=== PATIENT | female | born 2000 | race Hispanic/Latino ===

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

== ENCOUNTER 2024-07-04 20:03 | Emergency (ER) | payer BC, MEDICAID ==
[~2024-07-04] VITALS: Ht 154.9 cm; Wt 71.7 kg
[~2024-07-04 20:03] MED LIST changes: -CODE10LI PO; +CODE10LI2 PO; -GADOTERATE MEGLUMINE 10 MMOL/20 ML VIAL IV ONE; +ONDA-243 PO; -ONDA4TAB10 PO
[2024-07-04] MEDS: acetaMINOPHEN 500 MG TABLET PO ONE (22:48)
--- NOTE | 2024-07-04 23:00 | ERN ---
ED Note History of Present Illness Stated Complaint: THIRD TOE ON RIGHT CUT THROUGH NAIL AND SKIN Chief Complaint: Toe Pain/Injury Time Seen by MD: 22:21 Time Seen by Midlevel: 22:22 Dictation: 23-year-old female presents to the emergency department due to reported having sustained an injury to the 3rd digit of the right foot. Patient states that she was walking when she accidentally bumped her toe against a solid object. Currently, she reports having her level of discomfort as a 6/10. Patient states the pain is primarily with palpation or weight-bearing on the affected foot. She reports having sustained a small abrasion to the distal portion of that toe. Upon initial evaluation, the patient presents with a normal neurovascular examination. Allergies: Coded Allergies: Iodine and Iodide Containing Produc (Unverified Allergy, Severe, SHORTNESS OF BREATH, 07/22/20) Home Meds Active Scripts Promethazine HCl (Promethazine HCl) 25 Mg Supp.rect, 25 MG RC QID PRN for vomiting, #10 EA 0 Refills Prov:KENNETH YEPEZ MD 01/06/21 Benzonatate (Tessalon Perle) 100 Mg Capsule, 100 MG PO Q6HPRN PRN for COUGH, #20 CAP Prov:JADYN MORSE MD 11/05/20 Amoxicillin/Potassium Clav (Augmentin 875-125 Tablet) 1 Each Tablet, 1 EACH PO TID, #30 TAB Prov:JADYN MORSE MD 11/05/20 Fluticasone Propionate (Flonase Nasal [place]) 50 Mcg/[place], 50 MCG NASAL BID, #1 SPRAY Prov:JADYN MORSE MD 11/05/20 Cyclobenzaprine HCl (Flexeril) 10 Mg Tab, 10 MG PO BID, #30 TAB Prov:СВЕТЛАНА GALLO 10/07/20 Ibuprofen (Ibu) 400 Mg Tablet, 600 MG PO TIDAC, #45 TAB Prov:СВЕТЛАНА GALLO 10/07/20 Codeine Phosphate/Guaifenesin (Guaifen-Codeine 200-20 mg/10Ml) 10 Ml Liquid, 10 ML PO QID, #120 ML Prov:СВЕТЛАНА GALLO 08/03/20 Albuterol Sulfate (Proair Hfa) 8.5 Gm Hfa.aer.ad, 8.5 GM IH QID, #1 UNIT Prov:СВЕТЛАНА GALLO 08/03/20 Pantoprazole Sodium (Protonix) 40 Mg Tablet.dr, 40 MG PO DAILY, #14 TAB 0 Refills Prov:NILDA ESCOBAR MD 07/22/20 Metoclopramide HCl (Reglan 10 mg Tab) 10 Mg Tablet, 10 MG PO TIDP, #20 TAB 0 Refills Prov:NILDA ESCOBAR MD 07/22/20 Dicyclomine HCl (Bentyl) 20 Mg Tab, 20 MG PO Q6HPRN, #20 TAB 0 Refills Prov:NILDA ESCOBAR MD 07/22/20 Ondansetron (Ondansetron Odt) 4 Mg Tab.rapdis, 4 MG PO Q6HPRN, #20 TAB 0 Refills Prov:NILDA ESCOBAR MD 07/22/20 Past Medical History Past Medical History: No Pertinent History Additional Past Medical Hx: OCD, history of epistaxis Surgical History: None PSYCH History: no pertinent psych hx Family History: Negative Social History: Negative, Lives with family History: Not Applicable RN Note Reviewed/Agreed w/PFSH: Yes Review of System Dictation MS/Extremity: Pain to the 3rd digit of the right foot Skin: Toe abrasion Initial Vital Sign VS Vital Signs Date Time Temp Pulse Resp B/P (MAP) Pulse Ox O2 Delivery O2 Flow Rate FiO2 07/04/24 20:03 98.2 68 18 125/79 100 Room Air 07/04/24 20:11 0 21 Physical Exam Dictation General: awake, alert, NAD Head/Face: Normocephalic, atraumatic Eyes: PERRL, EOMI ENT: Oral mucosa moist Neck: Trachea midline, supple Cardiovascular: RRR, no edema Respiratory: Symmetrical, non-labored Abdomen: Soft, non-tender, non-distended, no guarding. Skin: Warm, small nonbleeding abrasion noted to the distal portion of the 3rd toe of the right foot MS/Extremity: Painful range of motion and tenderness to the 3rd toe of the right foot. Normal neurovascular examination. Neuro: COAx4, GCS 15, steady gait, Psych: Normal behavior, mood, and affect normal Results (Laboratory/Radiology) Laboratory/Radiology Laboratory Tests Test 07/04/24 20:38 07/04/24 21:20 Urine HCG, Qualitative NEGATIVE (NEGATIVE) Serum Test, Qualitative NEGATIVE (NEGATIVE) Labs Reviewed?: Yes X-RAY Comment: Three-view x-ray of the right foot with no cortical anomalies as interpreted by me. ED Course ED Course Orders Procedure Category Date Status Time ,Urine Test LAB 07/04/24 Complete 20:25 Foot Comp 3+Vws Rt RAD 07/04/24 Taken 20:37 Testing, LAB 07/04/24 Complete Serum Hcg 21:13 Acetaminophen 500mg PHA 07/04/24 In Process Tab (Tylenol 500mg T 23:00 Current Medications Medications (Trade) Dose Ordered Sig/Quin Route PRN Reason Start Time Stop Time Status Last Admin Dose Admin Acetaminophen (TYLenol 500MG TAB) 1,000 mg ONCE ONCE PO 07/04/24 23:00 07/04/24 23:01 07/04/24 22:48 Vital Signs Date Time Temp Pulse Resp B/P (MAP) Pulse Ox O2 Delivery O2 Flow Rate FiO2 07/04/24 20:11 98.2 68 18 125/79 100 Room Air* 0 21 07/04/24 20:03 98.2 68 18 125/79 100 Room Air Medical Decision Making MDM MDM: Differential diagnosis: Toe fracture, tuft toe, abrasion. Rationale: Tests considered and ordered secondary to shared decision making include: Previous outside records reviewed: Old ER visits. Risk of complication and/or morbidity or mortality of patient management: None Medications-Per medication reconciliation Need for hospitalization: Patient does not meet criteria for hospitalization. Need for emergency major/minor surgery: No There are no social concerns with this patient. Prescription drug management Prescriptions will include symptomatic care Patient's prior external medical records from other ER visits were reviewed by me as indicated. Prior testing and results from previous visits were reviewed. Prior tests were taken into account with medical decision making and resource utilization, independent historian/historians were used to obtain complete medical history. I independently interpreted the test that were performed, results were reviewed by me and considered findings on radiology if ordered. Medical management and examination interpretation discussions were had by me with other qualified healthcare professionals as indicated for the patient's care. DX & DISP Disposition: Discharge Departure Impression: Primary Impression: Turf toe of right foot Additional Impression: Abrasion of toe of right foot Condition: Stable Referrals: SELF,REFERRAL (PCP) SARA CARIAS July 04, 2024 23:00
[2024-07-04 23:03] VITALS: BP 124/70; PULSE 65; RESP 18; TEMP 98.2; O2SAT 100
--- NOTE | 2024-07-05 08:28 | HMCIMG ---
RIGHT FOOT RADIOGRAPHS - 3 VIEWS INDICATION: Third toe pain COMPARISON: None FINDINGS: AP, lateral, and oblique views. No acute fracture or subluxation identified. Midfoot alignment is well maintained. No radiopaque foreign body noted. IMPRESSION: No evidence for third toe fracture or subluxation.
== END 2024-07-04 23:04 | disposition home or self-care (01) ==
LOC: EDH 20:03
DX: S93.521A Sprain of metatarsophalangeal joint of right great toe, initial encounter (principal); F42.9 Obsessive-compulsive disorder, unspecified; Z79.899 Other long term (current) drug therapy; Z88.8 Allergy status to other drugs, medicaments and biological substances; Z91.041 Radiographic dye allergy status; W22.8XXA Striking against or struck by other objects, initial encounter; Y93.01 Activity, walking, marching and hiking; Y92.89 Other specified places as the place of occurrence of the external cause; Y99.8 Other external cause status
CPT/HCPCS: 36415; 73630; 81025; 84703; 99283

== ENCOUNTER 2024-10-03 20:25 | Emergency (ER) | payer BC ==
[~2024-10-03] VITALS: Ht 154.9 cm; Wt 72.6 kg
--- NOTE | 2024-10-03 20:27 | NUR ---
UA CUP PROVIDED
--- NOTE | 2024-10-03 20:57 | NUR ---
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 PT STATES SHE LANDED ON HER LEFT HIP AND NOW RATES PAIN 8/10 AND 10/10 ON MOTION. PT STATES SHE TOOK 1 GM OF TYLENOL PRIOR TO ARRIVAL WITHOUT ANY RELIEF.
--- NOTE | 2024-10-03 21:00 | ERN ---
ED Note History of Present Illness Stated Complaint: FALL, LEFT HIP PAIN Chief Complaint: Hip Pain/Injury Time Seen by MD: 20:58 Dictation: This is a 23-year-old female who presented to the emergency room complaining of left hip pain after she sustained a fall. Apparently she was fishing around 1900 time and she slipped and fell on a rock on the left side of her body she did not hit the head or any other parts. She began experiencing severe hip pain and hence she came in for evaluation no loss of consciousness. No history of any use of blood thinners. No blurred vision headache diplopia motor weakness or seizure activity. Temperature 98.2, blood pressure 108/73, heart rate of 66 pulse oximetry 99% on room air Her chronic medical problems include asthma, depression, OCD and previous history of epistaxis Allergies: Coded Allergies: Iodine and Iodide Containing Produc (Unverified Allergy, Severe, SHORTNESS OF BREATH, 07/22/20) Home Meds Active Scripts Ibuprofen (Ibuprofen) 800 Mg Tablet, 800 MG PO Q8H PRN for PAIN, #15 TAB 0 Refills Prov:JEANETTE CABEZAS MD 10/03/24 Promethazine HCl (Promethazine HCl) 25 Mg Supp.rect, 25 MG RC QID PRN for vomiting, #10 EA 0 Refills Prov:KENNETH YEPEZ MD 01/06/21 Benzonatate (Tessalon Perle) 100 Mg Capsule, 100 MG PO Q6HPRN PRN for COUGH, #20 CAP Prov:JADYN MORSE MD 11/05/20 Amoxicillin/Potassium Clav (Augmentin 875-125 Tablet) 1 Each Tablet, 1 EACH PO TID, #30 TAB Prov:JADYN MORSE MD 11/05/20 Fluticasone Propionate (Flonase Nasal [place]) 50 Mcg/[place], 50 MCG NASAL BID, #1 SPRAY Prov:JADYN MORSE MD 11/05/20 Cyclobenzaprine HCl (Flexeril) 10 Mg Tab, 10 MG PO BID, #30 TAB Prov:СВЕТЛАНА GALLO 10/07/20 Ibuprofen (Ibu) 400 Mg Tablet, 600 MG PO TIDAC, #45 TAB Prov:СВЕТЛАНА GALLO 10/07/20 Codeine Phosphate/Guaifenesin (Guaifen-Codeine 200-20 mg/10Ml) 10 Ml Liquid, 10 ML PO QID, #120 ML Prov:СВЕТЛАНА GALLO 08/03/20 Albuterol Sulfate (Proair Hfa) 8.5 Gm Hfa.aer.ad, 8.5 GM IH QID, #1 UNIT Prov:СВЕТЛАНА GALLO 08/03/20 Pantoprazole Sodium (Protonix) 40 Mg Tablet.dr, 40 MG PO DAILY, #14 TAB 0 Refills Prov:NILDA ESCOBAR MD 07/22/20 Metoclopramide HCl (Reglan 10 mg Tab) 10 Mg Tablet, 10 MG PO TIDP, #20 TAB 0 Refills Prov:NILDA ESCOBAR MD 07/22/20 Dicyclomine HCl (Bentyl) 20 Mg Tab, 20 MG PO Q6HPRN, #20 TAB 0 Refills Prov:NILDA ESCOBAR MD 07/22/20 Ondansetron (Ondansetron Odt) 4 Mg Tab.rapdis, 4 MG PO Q6HPRN, #20 TAB 0 Refills Prov:NILDA ESCOBAR MD 07/22/20 Past Medical History Past Medical History: Asthma, Depression, Other Additional Past Medical Hx: OCD, history of epistaxis Surgical History: None Family History: Negative Social History: Negative, Lives with family History: Not Applicable LMP: Sep 11, 2024 RN Note Reviewed/Agreed w/PFSH: Yes Review of System Dictation Constitutional: Negative for fever,chills, and weight loss Eyes: Negative for injury, pain,redness, and discharge ENT: Negative for injury,pain or swelling Cardiovascular: Negative for chest pain, palpitations, and edema Respiratory: Negative for shortness of breath, cough, and wheezing, Abdomen/GI: Negative for abdominal pain, nausea, vomiting, diarrhea, and constipation Back: Negative for injury and pain : Negative for injury, bleeding and discharge MS/Extremity: Negative for injury and deformity positive for left hip pain Skin: Negative for rash, and discoloration Neuro: Negative for headache, weakness, numbness, tingling, and seizure Psych: Negative for suicide ideation, homicidal ideation, and hallucinations Initial Vital Sign VS Vital Signs Date Time Temp Pulse Resp B/P (MAP) Pulse Ox O2 Delivery O2 Flow Rate FiO2 10/03/24 20:27 98.2 66 16 108/73 99 Room Air 10/03/24 20:47 0 21 Physical Exam Dictation General: awake, alert, NAD Head/Face: Normocephalic, atraumatic Eyes: PERRL, EOMI, vision at baseline ENT: oral cavity clear, TMs clear, no signs of infection Neck: Trachea midline, supple, no nuchal rigidity Cardiovascular: RRR, normal S1/S2, No MRGs, no JVD Respiratory: CTAB, no respiratory distress, No rales or wheezes Abdomen: Soft, non-tender, non-distended, normal bowel sounds, no guarding or rebound. Skin: Warm, dry, normal turgor, no rash MS/Extremity: Pulses equal, no cyanosis, neurovascular intact, FROM no leg shortening, mild tenderness Neuro: COAx4, GCS 15, strength 5/5, CN 2-12 intact, normal cerebellar exam, Psych: Normal behavior, mood, and affect normal Extremities-trace edema without any palpable cords, Homans sign is negative Results (Laboratory/Radiology) Laboratory/Radiology Laboratory Tests Test 10/03/24 21:10 Urine HCG, Qualitative NEGATIVE (NEGATIVE) Labs Reviewed?: Yes X-RAY Comment: REASON: Fall on left side , severeleft hip pain ORDERING PHYSICIAN: JEANETTE CABEZAS MD PROCEDURE: HIP U 2V L - HIP UNILAT 2-3VW LEFT EXAM: CR right Hip, 3 View. CLINICAL HISTORY: Fall on left side , severeleft hip pain COMPARISON: None provided. FINDINGS: BONES: No acute fracture or aggressive appearing osseous lesion. JOINTS: No dislocation. The joint spaces are normal. SOFT TISSUES: The soft tissues are unremarkable. IMPRESSION: No acute osseous abnormality. /[place] DICTATED BY: ISABEL LARA Jr., MD DATE: 10/03/24 616 ELECTRONICALLY SIGNED BY: ISABEL LARA Jr., MD DATE: 10/03/24 ED Course ED Course Orders Procedure Category Date Status Time Hip Unilat 2-3vw Left RAD 10/03/24 Resulted 20:58 ,Urine Test LAB 10/03/24 Complete 20:59 Ketorolac PHA 10/03/24 Complete Tromethamine 30mg/Ml 22:00 Ketorolac PHA 10/03/24 Complete Tromethamine 30mg/Ml 21:52 Current Medications Medications (Trade) Dose Ordered Sig/Quin Route PRN Reason Start Time Stop Time Status Last Admin Dose Admin Ketorolac Tromethamine (toRADol) 30 mg ONCE ONCE IM 10/03/24 22:00 10/03/24 22:01 DC 10/03/24 21:58 Ketorolac Tromethamine (toRADol) 30 mg STK-MED ONCE .ROUTE 10/03/24 21:52 10/03/24 21:53 DC Vital Signs Date Time Temp Pulse Resp B/P (MAP) Pulse Ox O2 Delivery O2 Flow Rate FiO2 10/03/24 20:47 98.1 65 16 105/73 100 Room Air* 0 21 10/03/24 20:27 98.2 66 16 108/73 99 Room Air Medical Decision Making MDM Differential diagnosis: Left hip contusion, ligamental tear, subcapital fracture, any type of fracture, hemarthrosis Rationale: Tests considered and ordered secondary to shared decision making include: Previous outside records reviewed: Old ER visits. Risk of complication and/or morbidity or mortality of patient management: None Medications-Per medication reconciliation Need for hospitalization: Patient does not meet criteria for hospitalization. Need for emergency major/minor surgery: No There are no social concerns with this patient. Prescription drug management Prescriptions will include symptomatic care Patient's prior external medical records from other ER visits were reviewed by me as indicated. Prior testing and results from previous visits were reviewed. Prior tests were taken into account with medical decision making and resource utilization, independent historian/historians were used to obtain complete medical history. I independently interpreted the test that were performed, results were reviewed by me and considered findings on radiology if ordered. Medical management and examination interpretation discussions were had by me with other qualified healthcare professionals as indicated for the patient's care. Problem List Problem List: (1) Contusion of left hip (2) Fall (3) Left hip pain DX & DISP Disposition: Discharge Departure Impression: Primary Impression: Contusion of left hip Additional Impressions: Fall, Left hip pain Condition: Stable Scripts Ibuprofen (Ibuprofen) 800 Mg Tablet 800 MG PO Q8H PRN for PAIN, #15 TAB 0 Refills Prov: JEANETTE CABEZAS MD 10/03/24 Additional Instructions: Patient and the caregiver have been informed of all the diagnostic tests and the imaging conducted during the today's visit to the emergency room and has verbalized understanding of the results I have personally reviewed and interpreted all diagnostic exams performed here in the ER today as well as the vital signs documented by the nursing staff. The patient is now being discharged to home and should follow up with the primary care physician or the specialist as directed by the ER staff. Follow-up with primary care provider in 1 to 2 days. Take medications as directed here in the emergency room. Okay to continue home medications unless otherwise discussed during your visit in the emergency room today. Return to your nearest emergency room if symptoms worsen or if there is no improvement. Call 911 if you need immediate assistance. Take Tylenol or Motrin [id number] as needed and if no contraindications are present. Increase oral hydration. A wound culture or urine culture was ordered here in the emergency room department please follow-up with primary care provider and advise them to get repeat ports from our facility. If you had any Adolph wrap/splints that were applied here, please do not remove them until you see your primary care or specialty. Referrals: SELF,REFERRAL (PCP) JEANETTE CABEZAS MD Oct 03, 2024 21:00
--- NOTE | 2024-10-03 21:58 | NUR ---
PT WAS GIVEN ICE PACK FOR HER HIP AND ARM AT INJECTION SITE
[2024-10-03] MEDS ORDERED: IBUP-2071 PO (22:33)
--- NOTE | 2024-10-03 22:42 | HMCIMG ---
EXAM: CR right Hip, 3 View. CLINICAL HISTORY: Fall on left side , severeleft hip pain COMPARISON: None provided. FINDINGS: BONES: No acute fracture or aggressive appearing osseous lesion. JOINTS: No dislocation. The joint spaces are normal. SOFT TISSUES: The soft tissues are unremarkable. IMPRESSION: No acute osseous abnormality. /[place]
[2024-10-03 23:04] VITALS: BP 109/62; PULSE 61; RESP 16; TEMP 97.7; O2SAT 100
== END 2024-10-03 23:05 | disposition home or self-care (01) ==
LOC: EDH 20:25
DX: S70.02XA Contusion of left hip, initial encounter (principal); F42.9 Obsessive-compulsive disorder, unspecified; J45.909 Unspecified asthma, uncomplicated; Z79.899 Other long term (current) drug therapy; Z88.8 Allergy status to other drugs, medicaments and biological substances; W18.39XA Other fall on same level, initial encounter; Y93.89 Activity, other specified; Y92.89 Other specified places as the place of occurrence of the external cause; Y99.8 Other external cause status
CPT/HCPCS: 99284; 81025; 73502; 96372; J1885